=== PATIENT | female | born 1965 | race African-American/Black ===

== ENCOUNTER → 2017-08-11 | Outpatient (CLI) | payer OTHER | END | disposition home or self-care (01) | LOC: CFH 15:46 | PROVIDERS: ATTEND Family Medicine | DX: Z12.31 Encounter for screening mammogram for malignant neoplasm of breast (principal) | CPT/HCPCS: 77063; G0202 ==

== ENCOUNTER → 2018-02-10 | Outpatient (CLI) | payer OTHER | END | disposition home or self-care (01) | LOC: RAD 12:49 → MERGE 13:00 | PROVIDERS: ATTEND Family Medicine | DX: R16.0 Hepatomegaly, not elsewhere classified (principal); R94.5 Abnormal results of liver function studies | CPT/HCPCS: 76705 ==

== ENCOUNTER 2019-03-24 17:35 | Emergency (ER) | payer OTHER ==
[~2019-03-24] VITALS: Ht 157.5 cm; Wt 92.0 kg
--- NOTE | 2019-03-24 17:47 | NUR ---
PT TO ROOM AT THIS TIME.
--- NOTE | 2019-03-24 17:57 | NUR ---
54 Y/O FEMALE PRESENTS TO ED WITH C/O WHEEZING. PER PT "I'VE HAD A COUGH, BUT THE LAST FEW DAYS I STARTED WHEEZING." NO C/O N/V/D, TRAUMA, SYNCOPE, CP. NO C/O F/C. PT PLACED ON CONT PULSE OX, NIBP. BEDSIDE.
[2019-03-24] MEDS ORDERED: ALBUTEROL/IPRATROPIUM 2.5MG/0.5MG, 3 ML NPPB ONE (18:00)
[2019-03-24 18:02] VITALS: BP 155/81
--- NOTE | 2019-03-24 18:08 | NUR ---
PT AMBULATORY WITH STEADY GAIT TO IMAGING.
[2019-03-24] MEDS ORDERED: ALBUTEROL/IPRATROPIUM 2.5MG/0.5MG, 3 ML ONE (18:13)
--- NOTE | 2019-03-24 18:55 | NUR ---
Patient/Caregiver given discharge instructions and they have confirmed that they understand the instructions. Patient ambulatory with steady gait. PT LEFT WITH ALL PERSONAL BELONGINGS.
== END 2019-03-24 18:57 | disposition home or self-care (01) ==
LOC: ED 18:40
DX: J06.9 Acute upper respiratory infection, unspecified (principal)
CPT/HCPCS: 71046; 93005; 94640; 99283; J7512; J7620